=== PATIENT | male | born 1955 | race Caucasian/White ===

== ENCOUNTER → 2021-02-21 11:30 | Outpatient (CLI) | payer MEDICARE, OTHER, SELFPAY ==
--- NOTE | 2021-02-21 11:44 | XR_ITS ---
PROCEDURE: XR SHOULDER LT MIN 2V CLINICAL INDICATION: IMPINGEMENT SYNDROME OF LT SHOULDER COMPARISON: No exams were available for comparison FINDINGS: No fracture or dislocation. No lytic or blastic change. There is normal mineralization. Osteoarthritic changes are present involving the left glenohumeral joint with prominent osteophyte projecting off the inferior aspect the humeral neck. Osteoarthritic changes are also present at the AC joint. Subchondral cystic changes are noted along the glenoid inferiorly. Mild narrowing of the subacromial space Other findings:None. 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
--- NOTE | 2021-02-21 11:44 | XR_ITS ---
PROCEDURE: XR SHOULDER RT MIN 2V CLINICAL INDICATION: IMPINGEMENT SYNDROME OF RT SHOULDER COMPARISON: CR XR SHOULDER LT MIN 2V from 02/21/2021 FINDINGS: No fracture or dislocation. No lytic or blastic change. There is normal mineralization. Osteoarthritic changes of the glenohumeral joint and acromioclavicular joint with prominent osteophyte along the inferior aspect of the humeral neck. Subchondral cystic changes of the glenoid superiorly and inferiorly. Faint calcification in the soft tissues superior to the greater tuberosity which may be seen with calcific tendinitis. No significant subacromial stenosis. Other findings:None. IMPRESSION: Moderate osteoarthritic changes the right shoulder with possible calcific tendinitis Dictated by: Say Ugalde MD 02/21/2021 14:07 Say Ugalde MD in [place] 02/21/2021 14:07
== END ==
PROVIDERS: PCP Family Medicine; Visit Provider Family Medicine
DX: M75.41 Impingement syndrome of right shoulder (principal); M75.42 Impingement syndrome of left shoulder
CPT/HCPCS: 73030

== ENCOUNTER → 2022-01-09 14:30 | Outpatient (CLI) | payer MEDICARE, SELFPAY ==
--- NOTE | 2022-01-09 14:34 | CA_ITS ---
APPROVED REPORT EXAM: Comprehensive 2D, Doppler, and color-flow Echocardiogram Rate Manager: Sahara Gonzalez, ALMA ROSA, RVS Ht: 5 ft 10 in Wt: 220lbs BSA: 2.17 BP: 153/90 mmHg Indications: Murmur, Hypotensive near syncaopal episode, HTN, Smoker 2D Dimensions IVSd 1.26 cm LVEF (Visual) 84.70 % PWd 1.10 cm LA Volume 35.80 mL LVDd 5.33 cm LA Volume Index 16.50 mL/m2 (M/F) 16-34 LVDs 2.44 cm Aortic Root 3.89 cm Left Atrium 2.41 cm LVOT 2.23 cm (M/F) 1.5-2.5 M-Mode Dimensions RVDd 2.20 cm (0.9-2.6) LA Diam 2.83 cm (1.9-4.0) LVDd 6.01 cm (3.5-5.7) Ao Diam 4.28 cm (2.0-3.7) LVDs 3.20 cm (3.5-5.7) IVSd 1.12 cm (0.6-1.1) PWd 1.04 cm (0.6-1.1) EF (Teich) 77.30% EPSs 0.32 cm FS 46.80% EDV (Teich) 180.70 mL TAPSE 1.32 (<1.7) ESV (Teich) 41.00 mL LV Diastology E Decel Time 200.00 (160-240 msec) E/A Ratio 0.56 MED E' 5.00 (< 7 cm/sec) MED A' 9.40 cm/s E'/MED E' Ratio 13.46 (>14) LAT E' 8.20 (<10 cm/sec) LAT A' 12.70 cm/s E/LAT E' Ratio 8.21 (>14) Aortic Valve LVOT Max 220.00 (70-110 cm/s) LVOT VTI 46.89 cm AoV Peak Zbigniew. 293.00 (50-130 cm/s) AO Peak GR. 34.40 mmHg AO Mean GR. 19.60 (<5 mmHg) AO VTI 56.83 (18-25 cm) SUNI (VTI) 3.22 (2.5-4.5 cm2) Mitral Valve MV A Velocity 120.00 (40-130 cm/s) E/A Ratio 0.56 MV Decel. Time 200.00 (160-240 ms) MV Mean Gr. 1.70 (<2mmHg) MV PHT 57.00 ms Pulmonary Valve PV Peak Velocity 92.00 (50-150 cm/s) Tricuspid Valve TR P. Velocity 214.00 cm/s RAP Estimate 10.00 mmHg RVSP 28.30 mmHg Left Ventricle Left atrium is mildly enlarged, left ventricle is normal size, there is moderate concentric left ventricular hypertrophy, however the basal septum is more hypertrophied. Hyperdynamic left ventricular systolic function, ejection fraction over 65% with no regional wall motion abnormality. Grade 1 diastolic dysfunction seen without tissue Doppler evidence of raise left atrial pressure. Right Ventricle Right atrium and right ventricle are normal size and contractility. Aortic Valve Aortic valve is thickened and calcified, Continues to display mobility, there is systolic anterior motion of the mitral valve leaflet creating a left ventricular dynamic outflow obstruction, the maximum gradient is 42 mmHg at rest, there was no Valsalva performed. Mitral Valve Mitral valve leaflets are minimally thickened, there is systolic anterior motion of the mitral valve, there is mild mitral regurgitation. There is no mitral stenosis. Tricuspid Valve Tricuspid valve is grossly normal, there is mild tricuspid regurgitation, tricuspid regurgitation jet velocity is inadequate for calculation of the right ventricular systolic pressure. Pulmonic Valve Pulmonic valve is poorly visualized. Great Vessels Aortic root is normal size. Inferior vena cava is poorly visualized. Pericardium No significant pericardial effusion noted. Conclusion 1. Mildly enlarged left atrium, normal left ventricular size, moderate concentric left ventricular hypertrophy, however septum is more hypertrophied raising the concerns for presence of hypertrophic cardiomyopathy, there is grade 1 diastolic dysfunction seen, estimated ejection fraction is over 65%. There is systolic anterior motion of the mitral valve leaflet creating a resting gradient of 42 mmHg left ventricular outflow tract, there is no provokable
== END ==
PROVIDERS: PCP Family Medicine; Visit Provider Nurse Practitioner Family
DX: R01.1 Cardiac murmur, unspecified (principal)
CPT/HCPCS: 93306

== ENCOUNTER → 2022-01-22 14:25 | Outpatient (CLI) | payer MEDICARE, SELFPAY ==
--- NOTE | 2022-01-22 14:31 | XR_ITS ---
FINAL REPORT CLINICAL HISTORY: ACUTE LEFT SIDED LOW BACK PAIN, no known injury FINDINGS: 5 views of the lumbar spine were obtained. There is no evidence of fracture or dislocation. The vertebral alignment is normal. There are mild and moderate degenerative changes. Vacuum disc phenomenon is seen at L5-S1. Mild vascular calcifications are noted. IMPRESSION: No acute bony abnormality. Reviewed, Interpreted and Dictated by Holden Caldera III, MD Transcribed by Desi Huerta Authenticated and [facility]
== END ==
PROVIDERS: PCP Family Medicine; Visit Provider Family Medicine
DX: M54.42 Lumbago with sciatica, left side (principal)
CPT/HCPCS: 72110

== ENCOUNTER 2022-08-17 09:45 | Emergency (ER) | payer MEDICARE, SELFPAY ==
[2022-08-17 09:46] VITALS: BP 150/93; PULSE 68; RESP 16; TEMP 36.1; O2SAT 93; BMI 27.9
--- NOTE | 2022-08-17 10:01 | HMH.EDGENADL ---
Discharge Plan Disposition Patient Disposition: Home, Self-Care Prescriptions Prescriptions: New cephalexin 500 mg capsule 500 mg PO QID 5 Days Qty: 20 0RF hydrocodone-acetaminophen 5-325 mg tablet 1 tab PO Q6H PRN (Reason: pain) 3 Days Qty: 12 0RF No Action gabapentin 300 mg capsule 300 mg PO BID PRN bisoprolol fumarate 10 mg tablet 10 mg PO DAILY Qty: 90 3RF Referrals Follow up/Referrals: Robel Carter MD [Primary Care Provider] - See instructions Activity Restrictions/Add. Instructions Additional Instructions/Restrictions: Please keep a petroleum-based gauze and superficial dressing on your wound until you follow-up with Dr. Mccarthy on Saturday the transfer center and receive contact you should call you for an appointment if you do not hear for them at the end of today please call the plastic surgery clinic [facility] and advised them that you were supposed to follow-up with Dr. Mccarthy on Saturday. Return with ongoing bleeding or evidence of any infection. Clinical Impressions Clinical Impression: Amputation of finger tip, Closed fracture of tuft of distal phalanx of finger Discharge ED Provider: Nancy Wray General Adult HPI General Stated complaint: [email or web address],lac on LT ring finger Time Seen by Provider: 08/17/22 10:01 History of Present Illness HPI narrative: Patient is a 67-year-old male presenting [place] a [place]. Patient states he was working with his tractor and the back part of his tractor a large piece was being pulled back down and and smashed the distal aspect of his left ring finger amputating part of his distal fingertip and soft tissue. Patient denies injuries elsewhere pain is moderate currently. Patient states his tetanus is up-to-date. Related Data Home Medications Medication Instructions Recorded Confirmed gabapentin 300 mg capsule 300 mg PO BID PRN 02/01/22 02/01/22 Previous Rx's Medication Instructions Recorded bisoprolol fumarate 10 mg tablet 10 mg PO DAILY #90 tabs 04/10/22 cephalexin 500 mg capsule 500 mg PO QID 5 days #20 caps 08/17/22 hydrocodone 5 mg-acetaminophen 325 1 tab PO Q6H PRN pain 3 days #12 08/17/22 mg tablet tabs Allergies Allergy/AdvReac Type Severity Reaction Status Date / Time No Known Drug Allergies Allergy Verified 02/01/22 10:30 [facility] Disclaimer: The information contained in this section may have been updated after the patient was seen, as this information can be updated by other users. Medical History (Updated 08/17/22 @ 10:31 by Nancy Wray MD) Abnormal echocardiogram Heart murmur Social History Smoking Status: Current every day smoker alcohol intake: never current occupational status: employed Travel in the last 8 weeks: None ROS Obtained: Yes All systems reviewed & no additional complaints except as documented Physical Exam General General appearance: alert Respiratory Respiratory exam: Present normal lung sounds bilaterally; Absent respiratory distress Cardiovascular Cardiovascular exam: Present regular rate; Absent tachycardia Extremities Exam Extremities exam: Present other (Left distal phalanx of the ring finger there is a tissue amputation of the distal pulp extending through the distal one third of the nailbed with no exposed bone tissue is not available for repair or reimplantation remainder of the extremity is normal) Neurological Exam Neurological exam: Present alert and oriented X3 Medical Decision Making Benito Inquiry Pt receiving controlled substance: No Vital Signs: 08/17/22 10:30 08/17/22 11:00 Pulse Rate 72 64 Respiratory Rate 18 18 Blood Pressure 161/105 H 150/93 H Blood Pressure Mean 120 130 02 Sat by Pulse Oximetry 97 97 Orders (Tests/Meds): ED MEDICATIONS Discontinued Medications Generic Name Dose Route Start Last Admin Trade Name Freq PRN Reason
--- NOTE | 2022-08-17 10:06 | XR_ITS ---
FINAL REPORT CLINICAL HISTORY: left ring finger, distal finger tip injury FINDINGS: Left hand Two views were obtained. There is small chronic calcification adjacent to the 3rd metacarpophalangeal. There is a fracture involving the tuft of the 4th distal phalanx with soft tissue defect at the distal end of the 4th digit. IMPRESSION: Fracture of the 4th distal phalanx. Reviewed, Interpreted and Dictated by Holden Caldera III, MD Transcribed by Liz Smith Authenticated and [facility]
--- NOTE | 2022-08-17 10:15 | PC.NURSE ---
Rounded on patient, pt sitting up on side of ED stretcher without any complaints. Call ashraf within reach. No other needs at this time.
--- NOTE | 2022-08-17 10:26 | PC.NURSE ---
placed call to [facility] for hand surgery
[2022-08-17 10:27] VITALS: BMI 27.9
[2022-08-17 10:30] VITALS: BP 161/105; PULSE 72; RESP 18; O2SAT 97
--- NOTE | 2022-08-17 10:30 | PC.NURSE ---
Dr Wray speaking with Dr El with hand surgery
--- NOTE | 2022-08-17 10:50 | PC.NURSE ---
MD at bedside irrigating partial amputation with dressing application.
[2022-08-17 11:00] VITALS: BP 150/93; PULSE 64; RESP 18; O2SAT 97
[2022-08-17 11:33] VITALS: BP 150/93; PULSE 68; RESP 16; TEMP 36.6; O2SAT 93
== END 2022-08-17 11:39 | disposition home or self-care (01) ==
PROVIDERS: Emergency Provider Student in an Organized Health Care Education/Training Program; PCP Family Medicine
DX: S62.635B Displaced fracture of distal phalanx of left ring finger, initial encounter for open fracture (principal); W23.2XXA Caught, crushed, jammed or pinched between a moving and stationary object, initial encounter; W30.89XA Contact with other specified agricultural machinery, initial encounter; F17.200 Nicotine dependence, unspecified, uncomplicated
CPT/HCPCS: 73120; 96365; 99284